=== PATIENT | male | born 1975 | race Caucasian/White ===

== ENCOUNTER 2020-05-25 16:20 | Emergency (ER) | payer OTHER, SELFPAY ==
--- NOTE | ~2020-05-25 | XR_ITS ---
EXAMINATION: XR foot LT min 3V DATE: 05/25/2020 16:46 INDICATION: Left foot pain, initial encounter TECHNIQUE: Dorsoplantar, lateral, and 2 oblique views of the left foot were obtained. COMPARISON: None. FINDINGS: There is an acute, traumatic, closed, oblique, intra-articular fracture at the medial base of the first distal phalanx. Soft tissue swelling is seen surrounding the fracture. No additional acu te osseous abnormality is identified. A dorsal calcaneal enthesophyte is noted. IMPRESSION: 1. Acute intra-articular fracture at the medial base of the first distal phalanx. Reviewed, dictated and finalized at location A. IMPRESSION: 1. Acute intra-articular fracture at the medial base of the first distal phalan x.
[2020-05-25 16:34] VITALS: BP 132/76; PULSE 69; RESP 16; TEMP 37.2; O2SAT 99
--- NOTE | 2020-05-25 16:37 | PC.NURSE ---
Pt taken from triage to xray
--- NOTE | 2020-05-25 17:07 | ED.LOWEXIN ---
HPI - Extremity Injury (Lower) General Chief Complaint: Extremity Injury, Lower Stated Complaint: toe injury Time Seen by Provider: 05/25/20 17:08 Source: patient Mode of arrival: ambulatory Limitations: no limitations History of Present Illness HPI Narrative: Sid Cisneros is a 44 yo male with no PMH who comes to express care with pian in L great toe after dropping heavy object (metal care ramp) on foot POA. Pain is rated as 7/10. Related Data Home Medications Medication Instructions Recorded Confirmed No Home Medications 05/25/20 05/25/20 Allergies Allergy/AdvReac Type Severity Reaction Status Date / Time CEPHALEXIN MONOHYDRATE Allergy Mild facial Uncoded 05/25/20 16:49 swelling Review of Systems Review of Systems: Narrative: CONSTITUTIONAL: Denies fever, chills, sweats. EYES: Denies visual changes, redness, discharge. ENT: Denies rhinorrhea, congestion, sore throat, otalgia. CARDIOVASCULAR: Denies chest pain, palpitations, edema. RESPIRATORY: Denies dyspnea, wheezing, cough GASTROINTESTINAL: Denies abdominal pain, nausea, vomiting, diarrhea. GENITOURINARY: Denies dysuria, hematuria, abnormal discharge SKIN: Denies rash or itching. NEUROLOGIC: Denies numbness, or focal weakness. PSYCHIATRIC: Denies anxiety or depression. Left great toe pain (trauma) PMFSH Family History Family History Other No active medical problems Social History Social History (Updated 05/25/20 @ 17:10 by Jessica Vera CNP) Smoking status: Never smoker Alcohol intake: never Gender identity (if verbalized by the patient): Male Comments At time of signature, I agree with nursing past medical, surgical, social and family history. There is no relevant family history pertinent to the presenting complaint. Exam Narrative: Exam Narrative: GENERAL: This is a well-nourished, well-developed patient, in mild distress. HEAD: normocephalic, atraumatic. EYES: Sclera clear/white. Vision is grossly intact. EARS: External ears normal. Hearing grossly intact. NOSE: External nose normal without nasal discharge, nares without redness, no rhinorrhea. THROAT: Mucous membranes moist, NECK: Neck supple, CARDIOVASCULAR: Regular rate and rhythm without murmurs, gallops, or rubs. RESPIRATORY: Clear to auscultation. Breath sounds equal bilaterally. No wheezes, rales, or rhonchi. GASTROINTESTINAL: Abdomen soft, SKIN: warm, intact with no suspicious lesions or rash, good texture and turgor. NEURO: awake, alert, and oriented to person, place and time. There were no obvious focal neurologic abnormalities. Steady gait EXTREMITIES: Normal range of motion. Left great toe pain with minimal swelling and or contusion BACK: Nontender without deformity Course Course Emergency Course: X-ray left foot- acute intraarticular fracture at medial basefirst distal phalanx Recommend patient walking boot and follow-up with orthopedist Vital Signs Vital signs: Vital Signs Temperature 98.9 F 05/25/20 16:34 Pulse Rate 69 05/25/20 16:34 Respiratory Rate 16 05/25/20 16:34 Blood Pressure 132/76 05/25/20 16:34 Pulse Oximetry 99 05/25/20 16:34 Temperature 98.9 F 05/25/20 16:34 Pulse Rate 69 05/25/20 16:34 Respiratory Rate 16 05/25/20 16:34 Blood Pressure 132/76 05/25/20 16:34 Pulse Oximetry 99 05/25/20 16:34 MDM - Extremity Injury (Lower) Differential Diagnosis Differential diagnosis: Likely puncture wound of foot, fracture of toe and other Discharge Plan Discharge Clinical Impression: Closed fracture of great toe of left foot Qualifiers: Encounter type: initial encounter Phalanx: distal Fracture alignment: nondisplaced Qualified Code(s): S92.425A - Nondisplaced fracture of distal phalanx of left great toe, initial encounter for closed fracture Patient Disposition: Home, Self-Care Condition: Stable Instructions: Toe Fracture (ED) Prescription
== END 2020-05-25 17:27 | disposition home or self-care (01) ==
PROVIDERS: Emergency Provider Nurse Practitioner; PCP Internal Medicine
DX: S92.425A Nondisplaced fracture of distal phalanx of left great toe, initial encounter for closed fracture (principal); W22.8XXA Striking against or struck by other objects, initial encounter
CPT/HCPCS: 73630; 99213; G0463

== ENCOUNTER 2020-11-01 13:00 | Outpatient (CLI) | payer OTHER, SELFPAY ==
[2020-11-01 13:59] LABS: Basophils Absolute Auto 0.1 K/mm3 (0.0-0.1); Basophils Percent Auto 0.6 % (0.2-1.2); Eosinophils Absolute Auto 0.6 K/mm3 (0-0.3); Eosinophils Percent Auto 7.2 % (0-4.4); Hematocrit 48.9 % (42.0-52.0); Hemoglobin 16.4 g/dL (14.0-18.0); Immature Granulocyte Absolute 0.03 K/mm3 (0.00-0.031); Immature Granulocyte Percent A 0.3 % (0-0.5); Lymphocytes Absolute Auto 3.01 K/mm3 (0.9-3.2); Lymphocytes Percent Auto 34.1 % (18.3-44.2); Mean Corpuscular HGB Conc 33.5 g/dl (32-36); Mean Corpuscular Hemoglobin 27.7 pg (26-34); Mean Corpuscular Volume 82.7 fl (80-100); Monocytes Absolute Auto 0.7 K/mm3 (0.1-0.6); Monocytes Percent Auto 7.8 % (2.6-8.5); Neutrophils Absolute Auto 4.4 K/mm3 (1.3-6.7); Platelet Count Result 240 k/mm3 (150-375); Red Blood Count 5.91 M/mm3 (4.6-6.20); Red Cell Distribution Width 12.9 % (11.5-14.5); White Blood Count 8.8 K/mm3 (4.5-10.0)
[2020-11-01 14:11] LABS: Alanine Aminotransferase 78 U/L (4-50); Albumin Level 4.1 g/dL (3.5-5.1); Alkaline Phosphatase 57 U/L (38-126); Anion Gap 6 mmol/L (8-16); Aspartate Amino Transferase 57 U/L (17-59); Bilirubin,Total 0.7 mg/dL (0.2-1.3); Blood Urea Nitrogen 15 mg/dL (9-20); Calcium 9.3 mg/dL (8.4-10.2); Carbon Dioxide 30 mmol/L (22-30); Chloride 102 mmol/L (98-107); Estimated Glomerular Filt Rate > 60; Glucose 91 mg/dL (75-110); Sodium 138 mmol/L (137-145)
== END 2020-11-01 13:01 | disposition home or self-care (01) ==
DX: R10.31 Right lower quadrant pain (principal); R11.0 Nausea
CPT/HCPCS: 36415; 80053; 85025

== ENCOUNTER → 2020-11-02 15:11 | Outpatient (CLI) | payer OTHER, SELFPAY ==
--- NOTE | ~2020-11-02 | CT_ITS ---
EXAMINATION: CT abdomen pelvis w con DATE: 11/02/2020 15:43 INDICATION: Bilateral lower quadrant abdominal pain and diarrhea. TECHNIQUE: Computed tomography (CT) of the abdomen and pelvis was performed with 100 mL Omnipaque-350 intravenous contrast. Automated exposure control and iterative reconstruction technique were employe d. The dose-length product was 828.01 mGy-cm. COMPARISON: None FINDINGS: Lung bases are clear. Heart size is normal. No pericardial or pleural effusion. Small sliding-type hi atal hernia. Liver, gallbladder, spleen, pancreas, bilateral adrenal glands and kidneys are normal. S mall bowel and appendix are normal. Diffuse mild colonic wall thickening most prominent in the ascend ing and proximal transverse colon and at the rectum consistent with colitis. No pneumatosis. Bladder is normal. No abscess or free intraperitoneal gas or fluid. Small fat-containing left inguinal hernia . Tiny fat-containing umbilical hernia. No pathologically enlarged abdominal or pelvic lymphadenopath y. Mild lumbar levocurvature. Mild thoracolumbar spondylosis. IMPRESSION: 1. Mild diffuse colonic wall thickening consistent with colitis which could be infectious, inflammato ry or unlikely ischemic in etiology. 2. Small sliding-type hiatal hernia. Reviewed, dictated and finalized at location A. [facility] IMPRESSION: 1. Mild diffuse colonic wall thickening consistent with colitis which could be infectious, inflammatory or unlikely ischemic in etiology. 2. Small sliding-type hiatal hernia.
== END ==
DX: R10.31 Right lower quadrant pain (principal); A04.72 Enterocolitis due to Clostridium difficile, not specified as recurrent; K40.90 Unilateral inguinal hernia, without obstruction or gangrene, not specified as recurrent
CPT/HCPCS: 74177; Q9967

== ENCOUNTER 2021-07-08 08:47 | Emergency (ER) | payer OTHER, SELFPAY ==
--- NOTE | ~2021-07-08 | XR_ITS ---
XR shoulder LT min 2V 07/08/2021 09:06 INDICATION: Left shoulder pain PROCEDURE: 4 views left shoulder COMPARISON: No prior studies for comparison. FINDINGS: Fracture, dislocation or subluxation is not identified. The soft tissues appear within norm al limits. No foreign bodies are identified. IMPRESSION: 1: NO ACUTE BONE OR JOINT ABNORMALITY IDENTIFIED. Reviewed, dictated and finalized at location A.
[2021-07-08 08:55] VITALS: BP 104/72; PULSE 62; RESP 16; TEMP 36.6; O2SAT 100
--- NOTE | 2021-07-08 09:44 | ED.UPPEXIN ---
HPI - Extremity Injury (Upper) General Chief Complaint: Extremity Injury, Upper Stated Complaint: Left foot Pain Time Seen by Provider: 07/08/21 09:31 Source: patient and RN notes reviewed Mode of arrival: ambulatory Limitations: no limitations History of Present Illness HPI narrative: Patient presents today complaining of left shoulder injury. He was in the bathtub this morning when he slipped getting out, his left arm was above him when he fell onto it. Denies numbness or tingling in the arm or hand. Currently rates pain 2/10 at rest, which increases to 7/10, with movement upward or forward. He has been taking ibuprofen with only mild relief. No previous surgeries or procedures on this left arm. MD complaint: injury to: left and shoulder Related Data Allergies Allergy/AdvReac Type Severity Reaction Status Date / Time cephalexin [From Keflex] Allergy swelling Verified 05/31/20 15:36 CEPHALEXIN MONOHYDRATE Allergy Mild facial Uncoded 05/31/20 11:32 swelling Review of Systems Review of Systems: CONSTITUTIONAL: Denies body aches, fever, chills, or sweats. EYES: Denies visual changes, redness, or discharge. ENT: Denies rhinorrhea, congestion, sore throat, or otalgia. CARDIOVASCULAR: Denies chest pain, palpitations, or edema. RESPIRATORY: Denies cough or dyspnea. GASTROINTESTINAL: Denies abdominal pain, nausea, vomiting, or diarrhea. GENITOURINARY: Denies dysuria or hematuria. SKIN: Denies rash, itching, or wounds. MUSCULOSKELETAL: Denies back pain, or myalgia. + Left shoulder injury NEUROLOGIC: Denies headache, numbness, tingling, or weakness. PSYCH: Denies depression or anxiety. [facility] Surgical History Surgical History History of gastric surgery On demographic paperwork pt. checked surgery for stomach/bowel. No other details were given. Family History Family History Other Cancer Diabetes mellitus Heart disease Hypertension Social History Social History Smoking status: Never smoker Alcohol intake: never Alcohol use details: occasionally, per 05/31/20 demographic paperwork less than 5 drinks a year Gender identity (if verbalized by the patient): Male Comments At time of signature, I have reviewed and agree with nursing past medical, surgical, social and family history unless otherwise noted. Please see nursing chart for further information. There is no relevant family history pertinent to the presenting complaint Exam Narrative: GENERAL: Well-appearing, well-nourished, and in no acute distress. HEAD: Normocephalic, atraumatic. EYES: EOMI. No redness or drainage. Conjunctivae normal. ENT: Mucous membranes pink and moist. NECK: Normal AROM. CHEST: No respiratory distress. EXTREMITIES: Left shoulder: Tenderness to the superior shoulder area. No edema, ecchymosis, or erythema. Pain with internal and external rotation. Pain at 45 degrees abduction and 45 degrees anterior flexion. Distal sensation intact. Capillary refill normal. Radial pulse normal. Handgrips equal and strong. SKIN: Warm, dry, no rash. Capillary refill normal. Normal skin turgor. NEURO: No focal deficits. Alert and oriented x3. Gait steady. PSYCH: Normal affect. No signs of depression or anxiety. Course Vital Signs Vital signs: Vital Signs Temperature 97.8 F 07/08/21 08:55 Pulse Rate 62 07/08/21 08:55 Respiratory Rate 16 07/08/21 08:55 Blood Pressure 104/72 07/08/21 08:55 Pulse Oximetry 100 07/08/21 08:55 Temperature 97.8 F 07/08/21 08:55 Pulse Rate 62 07/08/21 08:55 Respiratory Rate 16 07/08/21 08:55 Blood Pressure 104/72 07/08/21 08:55 Pulse Oximetry 100 07/08/21 08:55 Reviewed MDM - Extremity Injury (Upper) Differential Diagnosis Differential diagnosis: Likely other (Humerus fracture, cla
== END 2021-07-08 10:09 | disposition home or self-care (01) ==
PROVIDERS: Emergency Provider Nurse Practitioner; PCP Nurse Practitioner
DX: S46.912A Strain of unspecified muscle, fascia and tendon at shoulder and upper arm level, left arm, initial encounter (principal); W01.0XXA Fall on same level from slipping, tripping and stumbling without subsequent striking against object, initial encounter; Z86.19 Personal history of other infectious and parasitic diseases
CPT/HCPCS: 73030; 99213; G0463

== ENCOUNTER → 2021-11-14 10:42 | Outpatient (CLI) | payer OTHER, SELFPAY ==
--- NOTE | ~2021-11-14 | US_ITS ---
EXAMINATION: US soft tissue groin RT EXAM DATE: 11/14/2021 11:06 INDICATION: RLQ pain, right groin pain x 4 weeks, concern for hernia. TECHNIQUE: Multiple grayscale and Doppler images of the symptomatic right groin, and more medial rené on were obtained (by a technologist who performed the scan) and subsequently reviewed. There is no p rior study for comparison. FINDINGS: No right inguinal hernia identified or pathologically enlarged inguinal lymph nodes. The musculature was unremarkable. No fluid collection. IMPRESSION: 1. Unremarkable ultrasound exam. Reviewed, dictated and finalized at location B. ALMIC TECH
== END ==
PROVIDERS: PCP Nurse Practitioner; Visit Provider Nurse Practitioner
DX: R10.31 Right lower quadrant pain (principal)
CPT/HCPCS: 76882

== ENCOUNTER → 2022-03-05 06:55 | Outpatient (CLI) | payer OTHER, SELFPAY ==
--- NOTE | ~2022-03-05 | MR_ITS ---
EXAMINATION: MR pelvis wo con DATE: 03/05/2022 07:45 INDICATION: Right inguinal pain TECHNIQUE: Magnetic resonance imaging (MRI) of the pelvis was performed without intravenous contrast. Sequences included axial T1-weighted FSE, axial T2-weighted FS FSE, coronal T1-weighted FSE, coronal T2-weighted FS FSE, sagittal T1-weighted FSE and sagittal T2-weighted FS FSE. Additional and small f cdvo-rx-fosy centered at the right hip with double oblique PD-weighted FSE and T2-weighted FS FSE. COMPARISON: None. FINDINGS: There is a tear at the right rectus abdominis-abductor longus aponeurosis with small cleft of fluid b etween the aponeurosis and the anterior margin of the right pubic body. Minimal feathery muscular gemma ma along the proximal most abductor longus myotendinous junction. There is also mild associated ostei tis pubis with mild marrow edema along both sides of the pubic symphysis. Bone marrow signal is other guerrier normal. Mild lower lumbar levocurvature with moderate right-sided predominant disc height loss a t L3-L4 and mild disc height loss at L4-L5. Mild osteoarthritis at the left hip with small region of high-grade chondromalacia with mild underlying edema-like marrow signal change at the anterosuperior aspect of the left acetabulum. There is focal increased signal at the superolateral left acetabular l abrum suspicious for labral tear however sensitivity and specificity for assessment of the cartilage and labrum is limited on the large bfjoj-as-[id number] imaging. Right hip joint and labrum appears unremark able on the large [id number]-[id number] imaging. Physiologic amount fluid in the bilateral hip joint spaces. Minimal left ischial bursitis with mild tendinopathy without discrete tear at the origin of the proxi mal left hamstring tendons. The right-sided proximal hamstring tendons as well as the bilateral iliop soas and gluteal tendons are normal. The visceral organs in the pelvis are unremarkable. No pathologi marianne enlarged pelvic or inguinal lymphadenopathy. Very small fat-containing indirect left inguinal h ernia. IMPRESSION: 1. Mild osteitis pubis with partial tear at the right rectus abdominis-adductor longus aponeurosis co nsistent with athletic pubalgia sports hernia . 2. Very small fat-containing left inguinal hernia. 3. Mild left hip osteoarthritis with suggestion of labral tear, evaluation which is limited on the la rger field of view images. Reviewed, dictated and finalized at location B. IMPRESSION: 1. Mild osteitis pubis with partial tear at the right rectus abdominis-adductor longus aponeurosis consistent with athletic pubalgia sports hernia . 2. Very small fat-containing left inguinal hernia. 3. Mild left hip osteoarthritis with suggestion of labral tear, evaluation whic h is limited on the larger field of view images.
== END ==
PROVIDERS: PCP Nurse Practitioner; Visit Provider Nurse Practitioner
DX: R10.31 Right lower quadrant pain (principal); M86.8X8 Other osteomyelitis, other site; S39.011A Strain of muscle, fascia and tendon of abdomen, initial encounter; K40.90 Unilateral inguinal hernia, without obstruction or gangrene, not specified as recurrent; M16.12 Unilateral primary osteoarthritis, left hip
CPT/HCPCS: 72195

== ENCOUNTER → 2023-12-02 07:44 | Outpatient (CLI) | payer OTHER, SELFPAY ==
--- NOTE | ~2023-12-02 | US_ITS ---
EXAMINATION: US soft tissue groin RT DATE: 12/02/2023 08:14 INDICATION: Inguinal hernia with right groin pain TECHNIQUE: Multiple grayscale and Doppler ultrasound images of the right inguinal region of concern w ere obtained. COMPARISON: CT dated 11/02/2020 and MRI dated 03/05/2022 FINDINGS: There is a normal sized 7 x 5 x 4 mm right inguinal lymph node with normal central fatty hilum. No ot her abnormal masses or fluid collections identified. No evident right inguinal hernia. IMPRESSION: 1. Normal right inguinal ultrasound with no evident inguinal hernia, abnormal masses or fluid collect ions. Reviewed, dictated and finalized at location A. [employer] IMPRESSION: 1. Normal right inguinal ultrasound with no evident inguinal hernia, abnormal m asses or fluid collections.
== END ==
PROVIDERS: PCP Nurse Practitioner; Visit Provider Chiropractor
DX: K44.9 Diaphragmatic hernia without obstruction or gangrene (principal)
CPT/HCPCS: 76882

== ENCOUNTER → 2024-01-06 12:48 | Outpatient (CLI) | payer OTHER, SELFPAY ==
--- NOTE | ~2024-01-06 | CT_ITS ---
CT of the Abdomen and Pelvis: Indication: Right inguinal pain Technique: 2.5 mm axial scans were obtained through the abdomen and pelvis following intravenous adm inistration of 100 cc of Omnipaque 350. Dose reduction technique was used on this scan by utilizing a utomated exposure control and iterative reconstruction technique. The dose-length product (DLP) was 1 012.46 mGy-cm. COMPARISON: 11/02/2020 Findings: Scans through the lung bases are unremarkable. The liver, spleen, pancreas, gallbladder, adrenals and kidneys are within normal limits. No evidence of aortic aneurysm. No lymphadenopathy. No bowel obstruction or bowel wall thickening. There is no evidence to suggest acute appendicitis. Images through the pelvis were performed. Urinary bladder unremarkable. No pelvic mass seen. No ascit es. Impression: No significant abnormalities seen. Reviewed, dictated and finalized at [facility]. [employer] Impression: No significant abnormalities seen.
== END ==
PROVIDERS: PCP Nurse Practitioner; Visit Provider Nurse Practitioner
DX: R10.31 Right lower quadrant pain (principal); Z98.890 Other specified postprocedural states; Z87.19 Personal history of other diseases of the digestive system
CPT/HCPCS: 74177; Q9967

== ENCOUNTER 2024-11-12 14:47 | Outpatient (CLI) | payer OTHER, SELFPAY ==
--- NOTE | ~2024-11-12 | XR_ITS ---
EXAMINATION: XR cervical spine min 6V DATE: 11/12/2024 15:04 INDICATION: Neck pain. TECHNIQUE: 8 views of cervical spine including flexion and extension views were obtained. COMPARISON: None. FINDINGS: There is mild kyphosis of upper cervical spine. The spine is hypomobile with extension. Steven tebral body heights are normal. There is mildly decreased disc height at C4-C5 and C6-C7. There is mu ltilevel mild facet joint osteoarthritis. There is multilevel uncovertebral joint osteoarthritis, mod erate on the left at C5-C6. There is mild right neural foraminal stenosis at C3-C4, C5-C6, C6-C7, and C7-T1. There is mild left neural foraminal stenosis at C3-C4, C4-C5, C5-C6, C6-C7, and C7-T1. There is mild central canal stenosis at C3-C4, C5-C6, and C6-C7. No prevertebral soft tissue swelling. IMPRESSION: 1. Mild cervical spondylosis. Reviewed, dictated and finalized at location A. OPERATOR
== END 2024-11-12 14:48 | disposition home or self-care (01) ==
PROVIDERS: PCP Chiropractor; Visit Provider Chiropractor
DX: M43.02 Spondylolysis, cervical region (principal)
CPT/HCPCS: 72052

== ENCOUNTER 2025-09-02 11:02 | Outpatient (CLI) | payer OTHER, SELFPAY ==
--- NOTE | ~2025-09-02 | XR_ITS ---
EXAMINATION: XR knee LT min 4V, 09/02/2025 11:15 CDT HISTORY: Knee pain COMPARISON: No comparisons available. Findings: No acute fracture or malalignment. No significant degenerative changes. Soft tissues unremarkable. Impression: No acute fracture or malalignment. Reviewed, dictated and finalized at location P. Impression: No acute fracture or malalignment.
== END 2025-09-02 11:03 | disposition home or self-care (01) ==
LOC: MICIMG 11:04
PROVIDERS: PCP Chiropractor; Visit Provider Chiropractor
DX: M25.562 Pain in left knee (principal)
CPT/HCPCS: 73564